=== PATIENT | female | born 1975 | race Caucasian/White ===

== ENCOUNTER 2023-12-03 09:49 | Emergency (ER) | payer BC, SELFPAY ==
[2023-12-03 09:50] VITALS: BP 165/96
--- NOTE | 2023-12-03 10:08 | ED.GENMED ---
History of Present Illness
General
Chief Complaint: Abdominal Symptoms
Source: patient
Exam Limitations: none
Time Seen by Provider: 12/03/23 09:54
Nursing documentation reviewed up to this point in time: agreed with
History of Present Illness
History of Present Illness:
pt i a 48 y/o F
no pmh
started feeling some urinary pressure the past 1-2 days and then last night had some lower back pain
this morning woke up with more suprapubic pain and pressure, crampiness
lmp 11/11
no vaginal discharge, vaginal bleeding, dysuria, fever, chills, nausea, vomiting, constipation
no previoussugeries
no h/o kidney stones
pain x 2 huors
Review of Systems
Review of Systems
Allergies reviewed?: Yes
All Other Systems: Not applicable
Phy Exam
Physical Exam
Physical Exam:
GENERAL: Alert , in no apparent distress
EYE: pupils equal and reactive
NECK: Supple
ENT: o/p clr, mmm.
CARDIAC: Regular rate and rhythm .
LUNGS: Clear breath sounds bilaterally, no acute respiratory distress, no wheezes/rales/rhonchi
ABDOMEN: Soft, moderate suprapubic tenderness no r/g, mild right cvat, normal bowel sounds
: Normal external inspection, no erythema internally, no discharge, no CMT, mild adnexal tenderness on the right
NEUROLOGICAL: Alert and oriented, no focal neuro deficits
SKIN: Warm and dry, skin intact.
MUSCULOSKELETAL: No edema, well perfused. neg charles's sign
PSYCH: Normal and appropriate interaction.
Course
Orders/Labs/Results
Orders:
Orders
12/03/23 10:05
Test Result ONCE
12/03/23 10:06
0.9% Sodium Chloride 1000 ml [Nss] 1,000 ml IV BOLUS
Ketorolac [Toradol] 30 mg IV NOW STA
12/03/23 10:32
Complete Blood Count/With Diff Urgent
Comprehensive Metabolic Panel Urgent
HCG, Serum Qualitative Screen Urgent
Urinalysis Reflex To Culture Urgent
Date Specimen was Collected: 12/03/23
Time Specimen was Collected: 10:19
Urine Microscopic Reflex Cult Urgent
Chlamydia/GC by PCR Urgent
KT Source: U
Specimen Description:
Source:: URINE
Date Specimen was Collected: 12/03/23
Time Specimen was Collected: 10:19
Comment: ADD ON
Urine Culture Urgent
KT Source: U
Specimen Description:
Date Specimen was Collected: 12/03/23
Time Specimen was Collected: 10:19
12/03/23 10:58
CT Abd/Pel (IV only)-DH only Urgent
Comment:
Reason For Exam: lower abd pain, urinary discomfort, nausea
12/03/23 12:13
Ondansetron Injectable [Zofran] 4 mg IV NOW STA
12/03/23 12:31
Add On - Microbiology Urgent
Tests Added?: urine chlamydia/gonorrhea
12/03/23 13:18
Sulfamethox./Trimethoprim Ds [Bactrim Ds 800 mg/160 mg] 1 tablet PO NOW STA
12/03/23 13:26
Doxycycline [Vibramycin] 100 mg PO NOW STA
Abnormal Lab Results
12/03/23
10:32
MCH 32.0 H pg
(27.0-31.0)
Monocytes % 9.5 H %
(1.7-9.3)
Carbon Dioxide 21 L mmol/L
(22-30)
Urine Ketones Trace A
(Negative)
Leukocyte Esterase Rfl 2+ A
(Negative)
Urine WBC (Reflex) 30-40 A /HPF
(0-5)
Urine Bacteria (Reflex) Few A
(Negative)
12/03/23 10:32
12/03/23 10:32
Vital Signs
Initial and Last Documented VS:
Initial Vital Signs
Temp Pulse Resp BP Pulse Ox
98.1 F 83 16 165/96 99
12/03/23 09:50 12/03/23 09:50 12/03/23 09:50 12/03/23 09:50 12/03/23 09:50
Last Documented Vital Signs
Temp Pulse Resp BP Pulse Ox
98.1 F 75 18 129/65 99
12/03/23 09:50 12/03/23 13:20 12/03/23 13:20 12/03/23 13:20 12/03/23 13:20
MDM/Problems Addressed
Differential Diagnosis Includes:
UTI, appendicitis, pyelonephritis, kidney stone, PID, ovarian cyst
MDM/Problems Addressed:
48-year-old female with no previous medical problems says that she had some back discomfort yesterday and the feeling of urinary pressure and then this morning woke up and had pretty severe cramps in her lower pelvis region. She is not having any
dysuria but she did feel some frequency. No fever or chills, nausea or vomiting or diarrhea. She was having pain with standing up straight. She has never had anything like this before. On exam she was afebrile, slightly slow to move around in
the stretcher and had some suprapubic tenderness but no guarding or rebound. Mild right CVA tenderness. Labs show a urinalysis which appears to have bacteria, white some blood but could be contaminated based on number of squamous cells. She has a
reassuring white count of 6.3. Her LFTs are normal. Proceeded with a CT scan which shows what looks to be a ruptured cyst from her left ovary with small to moderate amount of free fluid in the pelvis and a little bit of fluid in the right upper
quadrant likely from the ruptured cyst. I discussed the case with the ED attending as well as radiologist regarding whether this could potentially be a tubo-ovarian abscess and possibly Gurpreet-Basilio Roberth. Radiologist thought it was much more likely
it was a cyst and not a TOA. I then did a pelvic exam which did not reveal any signs of PID. She had some mild adnexal discomfort bilaterally. Her pain is controlled with Toradol. Will recommend ibuprofen 3 times a day, Tylenol 3 times a day,
will cover her urine with antibiotics. My antibiotic choice was initially going to be Rocephin but she has anaphylaxis to penicillin. She also is highly unlikely to have PID related to chlamydia or gonorrhea because she has not been sexually
active in over a year and is from her . I did still send off testing of the urine. So we will for now choose doxycycline which could cover for pelvic colton as well. Return precautions given
*Critical Care Note
Total Time (30-74mins, 75-104mins- exclusive of procedures): Not Applicable
ED Attending Note
-
Portions of this chart may have been created with voice recognition software.� Occasional wrong word or��sound alike� substitutions may have occurred due to the inherent limitations of voice recognition software.
Discharge Plan
Departure
Patient Disposition: Home (Routine Discharge)
Date of Disposition: 12/03/23
Time of Disposition: 13:21
Patient with high blood pressure during this ER visit?: No
Condition: Fair
Covid-19: Not Applicable
Discharge Problem:
Pelvic pain, Ovarian cyst rupture
Instructions: Pelvic Pain (DC), Ovarian Cyst ED
Prescriptions:
New
doxycycline hyclate 100 mg tablet
100 mg PO BID Qty: 14 0RF
ibuprofen 800 mg tablet
800 mg PO Q8H PRN (Reason: Pain) Qty: 20 0RF
Referrals:
Jaida Ogden, [Family Provider] - Follow up in 2-3 days
Activity Restrictions/Additional Instructions:
Your pain is likely from a ruptured ovarian cyst. You should take ibuprofen 800 mg 3 times a day with food and Tylenol 2 extra strength every 6-8 hours as needed for pain as well. You can apply heating pad on your belly
Just to cover for possible infection in your urine we are giving you doxycycline 1 tablet twice a day for 7 days. I did send off testing for gonorrhea and chlamydia just to be on the safe side but you had no signs of pelvic inflammatory disease
today. 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 Please return to the ER for worsening pelvic pain, fever, vomiting, skin discoloration, vaginal discharge or any concerns
Interventions
Interventions:
*Risk Screen - Suicide Last Done: 12/03/23 09:50
*General Assessment Last Done: 12/03/23 09:50
*ED COVID-19 Vaccine History Last Done: 12/03/23 09:50
Discharge Date and Time
Print Language: MALAY
[2023-12-03 10:40] LABS: % Basophils 0.6 % (0-2); % Eosinophils 2.2 % (0-6); % Immature Granulocytes 0.2 % (0-0.5); % Lymphocytes 24.6 % (20.5-51.1); % Monocytes 9.5 % (1.7-9.3); % Neutrophils 62.9 % (42.2-75.2); Absolute Eosinophils 0.1 10^3/uL (0-0.7); Absolute Lymphocytes 1.6 10^3/uL (1.2-3.4); Absolute Monocytes 0.6 10^3/uL (0.1-0.6); Hematocrit 41.5 % (37.0-47.0); Hemoglobin 14.4 g/dL (12.0-16.0); Mean Corp Hgb Conc. 34.7 g/dL (33.0-37.0); Mean Corpuscular Volume 92.2 fL (81.0-99.0); Mean Platelet Volume 10.2 fL (7.4-10.4); Nucleated Red Blood Cells % 0 %; Platelet Count 318 10^3/uL (130-400); Red Cell Dist. Width 12.3 % (11.5-14.5); White Blood Cell Count 6.3 10^3/uL (4.8-10.8)
[2023-12-03 10:43] LABS: Urine Albumin Negative (Neg - Trace); Urine Bilirubin Negative (Negative); Urine Character Slightly Cloudy (Clear); Urine Color Yellow; Urine Glucose Negative (Negative); Urine Ketone Trace (Negative); Urine Leukocyte 2+ (Negative); Urine Nitrite Negative (Negative); Urine Occult Blood Negative (Negative); Urine Urobilinogen Negative (Neg - 1+)
[2023-12-03 11:00] LABS: Urine Bacteria Few (Negative); Urine Red Blood Cell 0-2 /HPF (0-2); Urine Squamous Cell 16-20 /LPF (Few); Urine White Cell 30-40 /HPF (0-5)
[2023-12-03 11:02] LABS: HCG, Serum Qualitative Screen Negative
[2023-12-03 11:04] LABS: ALT (SGPT) 20 U/L (0-35); AST (SGOT) 25 U/L (14-36); Albumin 4.4 g/dl (3.5-5.0); Alkaline Phosphatase 67 U/L (38-126); Blood Urea Nitrogen 12 mg/dl (7-17); Calcium 9.4 mg/dl (8.4-10.2); Carbon Dioxide 21 mmol/L (22-30); Chloride 104 mmol/L (98-107); Glucose 99 mg/dl (70-99); Potassium 4.6 mmol/L (3.5-5.1); Sodium 138 mmol/L (135-145); Total Bilirubin 0.6 mg/dl (0.2-1.3); Total Protein 7.2 g/dl (6.3-8.2); eGFR > 60.00
[2023-12-03] MEDS: TORADOL 30 MG IV (11:10)
[2023-12-03] MEDS: NSS 1000 IV (11:10)
[2023-12-03] MEDS: ZOFRAN 4 MG IV (12:55)
[2023-12-03 13:20] VITALS: BP 129/65
[2023-12-03] MEDS: VIBRAMYCIN 100 MG PO (13:42)
[2023-12-03 13:51] VITALS: BP 129/65
== END 2023-12-03 13:51 | disposition home or self-care (01) ==
LOC: EMR 09:49
PROVIDERS: Physician Assistant; EMERGENCY PHYSICIAN Student in an Organized Health Care Education/Training Program; FAMILY PHYSICIAN Family Medicine
DX: R10.2 Pelvic and perineal pain (principal); N83.202 Unspecified ovarian cyst, left side; K66.1 Hemoperitoneum; M54.50 Low back pain, unspecified; Z63.5 Disruption of family by separation and divorce; Z88.0 Allergy status to penicillin; Z91.010 Allergy to peanuts
CPT/HCPCS: 99285; 96375; 96361; 96374; 74177; 80053; 81003; 81015; 84703; 85025; 87086; 87491; 87591; Q9967

== ENCOUNTER 2023-12-22 10:06 | Emergency (ER) | payer BC, SELFPAY ==
[2023-12-22 10:16] VITALS: BP 147/88
[2023-12-22 10:38] LABS: % Basophils 0.5 % (0-2); % Eosinophils 1.7 % (0-6); % Immature Granulocytes 0.4 % (0-0.5); % Lymphocytes 24.6 % (20.5-51.1); % Monocytes 7.1 % (1.7-9.3); % Neutrophils 65.7 % (42.2-75.2); Absolute Eosinophils 0.1 10^3/uL (0-0.7); Absolute Monocytes 0.6 10^3/uL (0.1-0.6); Absolute Neutrophils 5.5 10^3/uL (1.4-6.5); Hematocrit 42.4 % (37.0-47.0); Hemoglobin 14.6 g/dL (12.0-16.0); Mean Corp Hgb Conc. 34.4 g/dL (33.0-37.0); Mean Corpuscular Hgb 30.7 pg (27.0-31.0); Mean Corpuscular Volume 89.3 fL (81.0-99.0); Mean Platelet Volume 9.2 fL (7.4-10.4); Nucleated Red Blood Cells % 0 %; Platelet Count 401 10^3/uL (130-400); Red Blood Cell Count 4.75 10^6/uL (4.20-5.40); Red Cell Dist. Width 12.1 % (11.5-14.5); White Blood Cell Count 8.3 10^3/uL (4.8-10.8)
[2023-12-22 10:40] LABS: Urine Albumin Negative (Neg - Trace); Urine Bilirubin Negative (Negative); Urine Character Clear (Clear); Urine Color Straw; Urine Glucose Negative (Negative); Urine Ketone Negative (Negative); Urine Leukocyte Negative (Negative); Urine Nitrite Negative (Negative); Urine Occult Blood Negative (Negative); Urine Urobilinogen Negative (Neg - 1+)
[2023-12-22 10:48] LABS: HCG, Serum Qualitative Screen Negative
[2023-12-22 10:54] LABS: ALT (SGPT) 30 U/L (0-35); AST (SGOT) 27 U/L (14-36); Albumin 4.6 g/dl (3.5-5.0); Alkaline Phosphatase 69 U/L (38-126); Blood Urea Nitrogen 21 mg/dl (7-17); Calcium 9.9 mg/dl (8.4-10.2); Carbon Dioxide 25 mmol/L (22-30); Chloride 102 mmol/L (98-107); Glucose 95 mg/dl (70-99); Potassium 4.5 mmol/L (3.5-5.1); Sodium 139 mmol/L (135-145); Total Bilirubin 0.6 mg/dl (0.2-1.3); Total Protein 7.8 g/dl (6.3-8.2); eGFR > 60.00
[2023-12-22 11:48] VITALS: BMI 30.8
--- NOTE | 2023-12-22 12:08 | ED.GENMED ---
History of Present Illness
General
Chief Complaint: Abdominal Pain
Time Seen by Provider: 12/22/23 12:08
History of Present Illness
History of Present Illness:
Patient is a 48-year-old female with no reported chronic medical problems here today for evaluation of lower pelvic pain that began earlier this morning just prior to arrival. She reports pain along both sides as well as the middle but pain is not
on 1 side more than the other. Pain has been persistent. No fevers or vomiting. No diarrhea. No urinary or vaginal symptoms. No concern for an STI. No prior pelvic or abdominal surgeries. The patient was seen here on 12/03/2023 for similar
symptoms she underwent testing including labs which were noted to be normal. Urine dip with trace ketones, 2+ leukocyte esterase, 30-40 WBCs, few bacteria, and 16-20 squamous epithelium. Urine culture was ordered which revealed probable
contamination. Gonorrhea and Chlamydia testing negative. Patient underwent a CT scan of the abdomen and pelvis with IV contrast which revealed cholelithiasis without evidence of acute cholecystitis. There was also findings of a ruptured cyst or
follicle from the left ovary with a small to moderate amount of free fluid in the pelvis. There is also a small amount of free fluid in the right upper quadrant adjacent to the liver. There is also mildly dilated loops of small bowel within the
abdomen most likely mild focal ileus without findings of a bowel obstruction. No free intraperitoneal air. Patient ultimately discharged. She noted complete resolution of symptoms until today.
Review of Systems
Review of Systems
All Other Systems: ROS reviewed and negative except as documented in HPI and ROS
Phy Exam
Physical Exam
Physical Exam:
GENERAL: Alert , in no apparent distress
EYE: pupils equal and reactive
NECK: Supple
ENT: o/p clr, mmm.
CARDIAC: Regular rate and rhythm .
LUNGS: Clear breath sounds bilaterally, no acute respiratory distress, no wheezes/rales/rhonchi
ABDOMEN: Soft, without focal tenderness, no r/g, no cvat
PELVIC: Mild external pelvic tenderness throughout, no rebound/guarding, no rashes
NEUROLOGICAL: Alert and oriented, no focal neuro deficits
SKIN: Warm and dry, skin intact.
MUSCULOSKELETAL: No edema, well perfused.
PSYCH: Normal and appropriate interaction.
Course
Orders/Labs/Results
Orders:
Orders
12/22/23 10:20
Test Result ONCE
12/22/23 10:23
Complete Blood Count/With Diff Urgent
Comprehensive Metabolic Panel Urgent
HCG, Serum Qualitative Screen Urgent
12/22/23 10:28
Urinalysis Reflex To Culture Urgent
Date Specimen was Collected: 12/22/23
Time Specimen was Collected: 10:19
12/22/23 12:24
Ibuprofen [Motrin] 600 mg PO NOW STA
Transvaginal US [US Pelvis W Transvag Combined] Urgent
Comment:
Reason For Exam: pelvic pain recent ruptured cyst
Abnormal Lab Results
12/22/23
10:23
Plt Count 401 H 10^3/uL
(130-400)
BUN 21 H mg/dl
(7-17)
12/22/23 10:23
12/22/23 10:23
Vital Signs
Initial and Last Documented VS:
Initial Vital Signs
Temp Pulse Resp BP Pulse Ox
98 F 82 20 147/88 100
12/22/23 10:16 12/22/23 10:16 12/22/23 10:16 12/22/23 10:16 12/22/23 10:16
Last Documented Vital Signs
Temp Pulse Resp BP Pulse Ox
98.2 F 86 18 122/55 96
12/22/23 15:09 12/22/23 15:09 12/22/23 15:09 12/22/23 15:09 12/22/23 15:09
MDM/Problems Addressed
Differential Diagnosis Includes:
Patient is a 48-year-old female with no reported chronic medical problems here today for evaluation of lower pelvic pain. Overall, patient appears very well. We will initiate workup including a transvaginal ultrasound.
12/22/2023 14:39: Screening labs grossly within normal limits. Urine test negative. Urine dip grossly negative for infection. Transvaginal ultrasound reveals a mild amount of free fluid in the pelvis adjacent to the left ovary, likely
related to recent cyst rupture. Patient made aware of findings. Patient well-appearing and comfortable in bed. Discussed additional diagnostic options with patient including CT scan of the abdomen pelvis with IV contrast. Risks/benefits
discussed. Patient declining test. I do think this is reasonable at this time given reassuring recent CT scan, well appearance of patient, lack of fever/vomiting, normal and reassuring blood work, and an alternative reason for the patient's
symptoms including recent cyst rupture. Will recommend pain control, supportive measures, and patient has an appointment to follow-up with [facility] this upcoming Monday. Patient provided with strict return precautions for worsening symptoms. All
questions answered. Stable for discharge.
*Critical Care Note
Total Time (30-74mins, 75-104mins- exclusive of procedures): Not Applicable
ED Attending Note
-
Portions of this chart may have been created with voice recognition software.� Occasional wrong word or��sound alike� substitutions may have occurred due to the inherent limitations of voice recognition software.
Discharge Plan
Departure
Patient Disposition: Home (Routine Discharge)
Date of Disposition: 12/22/23
Time of Disposition: 14:46
Patient with high blood pressure during this ER visit?: Yes
Condition: Good
Covid-19: Not Applicable
Discharge Problem:
Pelvic pain
Instructions: Pelvic Pain (DC)
Prescriptions:
No Action
doxycycline hyclate 100 mg tablet
100 mg PO BID Qty: 14 0RF
ibuprofen 800 mg tablet
800 mg PO Q8H PRN (Reason: Pain) Qty: 20 0RF
Referrals:
Jaida Ogden DO [Family Provider] - Follow up in 2-3 days
Activity Restrictions/Additional Instructions:
You were seen today for evaluation of abdominal/pelvic pain.
We obtained an ultrasound which reveals evidence of free fluid in the pelvis suggestive of a recent cyst rupture which is similar with your most recent CAT scan.
Monitor your symptoms. Take [id number] ibuprofen and Tylenol as directed as needed. Rest.
Follow-up with your doctor within the next 2 to 3 days for close reevaluation. We also recommend following up with your authorization rep for your routine appointment scheduled this upcoming Monday.
Return for new, worsening, or concerning symptoms.
Interventions
Interventions:
*Risk Screen - Suicide Last Done: 12/22/23 10:16
*General Assessment Last Done: 12/22/23 10:16
*Neglect/Abuse Screening Last Done: 12/22/23 10:16
ED- Fall Risk Assessment Last Done: 12/22/23 11:47
*ED COVID-19 Vaccine History Last Done: 12/22/23 11:48
*Nursing Disposition Last Done: 12/22/23 15:09
CL-Byqmdq-Cucmwidgix Assessment Last Done: 12/22/23 11:47
Discharge Date and Time
Discharge Date/Time: 12/22/23 15:10
Print Language: HEBREW
[2023-12-22] MEDS: MOTRIN 600 MG PO (12:32)
[2023-12-22 15:09] VITALS: BP 122/55
== END 2023-12-22 15:10 | disposition home or self-care (01) ==
LOC: EMR 10:06
PROVIDERS: Emergency Medicine; EMERGENCY PHYSICIAN Emergency Medicine; FAMILY PHYSICIAN Family Medicine
DX: R10.2 Pelvic and perineal pain (principal); Z11.3 Encounter for screening for infections with a predominantly sexual mode of transmission
CPT/HCPCS: 99284; 76830; 76856; 80053; 81003; 84703; 85025